=== PATIENT | male | born 1960 | race Caucasian/White ===

== ENCOUNTER 2020-07-13 12:42 | Emergency (ER) | payer OTHER ==
--- NOTE | 2020-07-13 13:45 | ED ---
Psych HPI - General Chief Complaint: Psychiatric Symptoms Stated Complaint: Medication problems Time Seen by Provider: 07/13/20 13:06 Source: patient Mode of arrival: ambulatory - Related Data Home Medications Medication Instructions Recorded Confirmed ALPRAZolam [Xanax] 0.5 mg PO BID 07/13/20 07/13/20 Venlafaxine HCl [Effexor XR] 37.5 mg PO HS 07/13/20 07/13/20 Venlafaxine HCl [Effexor XR] 75 mg PO DAILY 07/13/20 07/13/20 Previous Rx's Medication Instructions Recorded ALPRAZolam [Xanax] 1 mg PO Q8HR PRN 3 Days #9 tab 07/13/20 Allergies Allergy/AdvReac Type Severity Reaction Status Date / Time No Known Allergies Allergy Verified 07/13/20 16:05 Review of Systems ROS Statement: Those systems with pertinent positive or pertinent negative responses have been documented in the HPI. ROS Other: All systems not noted in ROS Statement are negative. Past Medical History Past Medical History: No Reported History History of Any Multi-Drug Resistant Organisms: None Reported Past Surgical History: Hernia Repair Additional Past Surgical History / Comment(s): abd hernia Past Psychological History: Anxiety, Depression, PTSD Smoking Status: Current every day smoker Past Alcohol Use History: Occasional Past Drug Use History: Marijuana General Exam Limitations: no limitations Course Vital Signs 07/13/20 12:55 Temperature 97.8 F Pulse Rate 94 Respiratory 20 Rate Blood Pressure 162/78 O2 Sat by Pulse 98 Oximetry Medical Decision Making - Lab Data Lab Results 07/13/20 Range/Units 13:41 Urine Opiates Screen Not Detected (NotDetected) Ur Oxycodone Screen Not Detected (NotDetected) Urine Methadone Screen Not Detected (NotDetected) Ur Propoxyphene Screen Not Detected (NotDetected) Ur Barbiturates Screen Not Detected (NotDetected) U Tricyclic Antidepress Not Detected (NotDetected) Ur Phencyclidine Scrn Not Detected (NotDetected) Ur Amphetamines Screen Not Detected (NotDetected) U Methamphetamines Scrn Not Detected (NotDetected) U Benzodiazepines Scrn Detected H (NotDetected) Urine Cocaine Screen Not Detected (NotDetected) U Marijuana (THC) Screen Detected H (NotDetected) Disposition Clinical Impression: Adjustment reaction of adult life Disposition: HOME SELF-CARE Condition: Stable Instructions (If sedation given, give patient instructions): Generalized Anxiety Disorder (ED) Additional Instructions: Please return to the Emergency Department if symptoms worsen or any other concerns. Prescriptions: ALPRAZolam [Xanax] 1 mg PO Q8HR PRN 3 Days #9 tab PRN Reason: Anxiety Is patient prescribed a controlled substance at d/c from ED?: Yes If prescribed controlled substance>3 days was MAPS reviewed?: Prescribed <3 Days Referrals: Bri Alvarez PAC [REFERRING] - 1-2 days Time of Disposition: 16:45
[2020-07-13 14:11] LABS: Amphetamine Screen,Urine Not Detected (NotDetected); Barbiturate Screen,Urine Not Detected (NotDetected); Benzodiazepines Screen,Urine Detected (NotDetected); Cocaine Screen,Urine Not Detected (NotDetected); Methadone Screen, Urine Not Detected (NotDetected); Opiate Screen,Urine Not Detected (NotDetected); Oxycodone Screen, Urine Not Detected (NotDetected); Phencyclidine Screen,Urine Not Detected (NotDetected); Tricyclic Antidepressant,Urine Not Detected (NotDetected); Urn Cannabinoid Scrn Detected (NotDetected)
[2020-07-13] MEDS ORDERED: ALPRAZolam 1 MG TAB PO STA (14:46)
[2020-07-13 17:31] VITALS: BP 134/80; PULSE 69; RESP 18; TEMP 98.2
== END 2020-07-13 17:29 | disposition home or self-care (01) ==
LOC: EC 12:42
DX: F43.20 Adjustment disorder, unspecified (principal); F32.9 Major depressive disorder, single episode, unspecified; F41.9 Anxiety disorder, unspecified; F17.200 Nicotine dependence, unspecified, uncomplicated; F12.90 Cannabis use, unspecified, uncomplicated; Z79.899 Other long term (current) drug therapy
CPT/HCPCS: 80306; 82075; 99284

== ENCOUNTER → 2020-07-20 | Outpatient (CLI) | payer OTHER | END | disposition home or self-care (01) | LOC: LABWHC1 13:15 | PROVIDERS: ATTEND Pediatrics | DX: Z20.822 Contact with and (suspected) exposure to COVID-19 (principal); R50.9 Fever, unspecified | CPT/HCPCS: U0003; C9803; U0005 ==

== ENCOUNTER 2020-08-01 16:59 | Emergency (ER) | payer OTHER ==
[2020-08-01 17:34] VITALS: BP 116/88; TEMP 98.9
--- NOTE | 2020-08-01 18:10 | ED ---
General Adult HPI - General Chief complaint: Anxiety Stated complaint: EPS eval Time Seen by Provider: 08/01/20 17:20 Source: patient Mode of arrival: ambulatory Limitations: no limitations - History of Present Illness Initial comments: Dictation was produced using [employer] dictation software. please excuse any grammatical, word or spelling errors. This patient was cared for during a federal and state declared state of emergency secondary to Covid 19 Chief Complaint: 60-year-old male presents with anxiety attack and suicidal thoughts History of Present Illness: Patient is a 60-year-old male who presents today with anxiety attack and suicidal thoughts. Patient states has been feeling like he wants to harm himself or the last day or so. He was seen here last week for the same thing. Patient thinks he needs to have his medications adjusted. He does not have a specific plan. He denies any medical complaints. No chest pain shortness of breath. The ROS documented in this emergency department record has been reviewed and confirmed by me. Those systems with pertinent positive or negative responses have been documented in the HPI. All other systems are other negative and/or noncontributory. PHYSICAL EXAM: General Impression: Alert and oriented x3, not in acute distress HEENT: Normocephalic atraumatic, extra-ocular movements intact, pupils equal and reactive to light bilaterally, mucous membranes moist. Cardiovascular: Heart regular rate and rhythm Chest: Able to complete full sentences, no retractions, no tachypnea Abdomen: abdomen soft, non-tender, non-distended, no organomegaly Musculoskeletal: Pulses present and equal in all extremities, no peripheral edema Motor: no focal deficits noted Neurological: CN II-XII grossly intact, no focal motor or sensory deficits noted Skin: Intact with no visualized rashes Psych: Mildly anxious ED course: 60-year-old male presents to the emergency Department for suicidal ideation and anxiety attack. vital signs upon arrival shows heart rate of 111, oxygen saturation 93% on room air cumbersome vital signs within acceptable limits. Chest x-ray is unremarkable. EKG is unremarkable. EKG interpretation: Ventricular rate 91, normal sinus rhythm, SC interval 1:30, QRS 104, QTC 423. No SC prolongation, no QTC prolongation, no ST or T-wave changes noted. No old EKG for comparison. Overall, this EKG is unremarkable Patient was medically cleared and evaluated by EPS who recommended discharge. patient given outpatient resources - Related Data Home Medications Medication Instructions Recorded Confirmed ALPRAZolam [Xanax] 0.5 mg PO BID 07/13/20 07/13/20 Venlafaxine HCl [Effexor XR] 37.5 mg PO HS 07/13/20 07/13/20 Venlafaxine HCl [Effexor XR] 75 mg PO DAILY 07/13/20 07/13/20 Previous Rx's Medication Instructions Recorded ALPRAZolam [Xanax] 1 mg PO Q8HR PRN 3 Days #9 tab 07/13/20 Allergies Allergy/AdvReac Type Severity Reaction Status Date / Time No Known Allergies Allergy Verified 07/13/20 16:05 Review of Systems ROS Statement: Those systems with pertinent positive or pertinent negative responses have been documented in the HPI. ROS Other: All systems not noted in ROS Statement are negative. Past Medical History Past Medical History: No Reported History History of Any Multi-Drug Resistant Organisms: None Reported Past Surgical History: Hernia Repair Additional Past Surgical History / Comment(s): abd hernia Past Psychological History: Anxiety, Depression, PTSD Smoking Status: Current every day smoker, Heavy tobacco smoker Past Alcohol Use History: Occasional Past Drug Use History: Marijuana General Exam Limitations: no limitations Course Vital Signs 08/01/20 17:31 Temperature 98.9 F Pulse Rate 111 H Respiratory 18 Rate Blood Pressure 116/88 O2 Sat by Pulse 93 L Oximetry Disposition Clinical Impression: Anxiety, Suicidal ideation Disposition: HOME SELF-CARE Condition: Good Instructions (If sedation given, give patient instructions): Generalized Anxiety Disorder (ED) Is patient prescribed a controlled substance at d/c from ED?: No Referrals: Rickie Williamson MD [Primary Care Provider] - 1-2 days Time of Disposition: 20:04
--- NOTE | 2020-08-01 19:39 | XR ---
EXAMINATION TYPE: XR chest 1V portable DATE OF EXAM: 08/01/2020 COMPARISON: NONE HISTORY: Hypoxemia TECHNIQUE: Single view FINDINGS: Heart and mediastinum are normal. Lungs are clear. Diaphragm is normal. Bony thorax appears normal. IMPRESSION: Normal chest
[2020-08-01 20:18] VITALS: PULSE 94; RESP 16
== END 2020-08-01 20:18 | disposition home or self-care (01) ==
LOC: EC 16:59
DX: R45.851 Suicidal ideations (principal); F41.9 Anxiety disorder, unspecified; F32.9 Major depressive disorder, single episode, unspecified; F17.200 Nicotine dependence, unspecified, uncomplicated
CPT/HCPCS: 71045; 82075; 93005; 99284

== ENCOUNTER 2024-06-15 17:44 | Inpatient (IN) | payer MEDICAID, OTHER ==
[2024-06-15] MEDS: IV FLUID CONTINUATION 1,000 ML IV ONE (18:00)
[2024-06-15] MEDS: LIDOCAINE 1% INJ 10MG/ML (20 ML MDV) SQ ONE (18:16)
[2024-06-15] MEDS: fentaNYL (PF) 50 MCG/1 ML VIAL IVP ONE (18:16)
[2024-06-15] MEDS: MIDAZOLAM 2 MG/2 ML VIAL IVP ONE (18:16)
[2024-06-15] MEDS: IOPAMIDOL-370 100ML BTL INJ ONE (18:25)
[2024-06-15] MEDS ORDERED: RX INFO: IV CONTRAST WAS GIVEN 1 EACH MISC MISCELLANE PRN (18:33)
--- NOTE | 2024-06-15 19:53 | CC ---
CARDIAC CATHETERIZATION REPORT INDICATIONS: Acute inferior wall myocardial infarction. HISTORY OF PRESENT ILLNESS: This is a 64-year-old gentleman, who presented to [facility] with sudden onset chest pain, where a diagnosis of acute inferior wall myocardial infarction was made, and the patient was transferred emergently to [facility] for primary angioplasty. 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 His chest pain had improved by the time we saw him. His EKG from the [facility] shows very minimal ST elevation in the inferior leads. I do not see a classic ST-segment elevation suggestive of an acute inferior SD. The patient was explained of the risks, benefits, and alternatives and understood and decided to proceed with the procedure. PROCEDURE NOTE: After obtaining informed consent, left heart catheterization and coronary angiogram were performed via the right radial artery using standard Vanessa catheters. The patient tolerated the procedure well without any obvious immediate complications. Total sedation time was 15 minutes. A TR band will be used for hemostasis. Right radial artery access was obtained using Seldinger technique. A 6-Portuguese sheath was placed. Catheters and wires were floated into the ascending aorta under fluoroscopic guidance. The patient received verapamil and heparin per protocol. FINDINGS: Hemodynamics: 1. Left ventricular end-diastolic pressure is 12 mm. There is no significant gradient across the aortic valve. 2. Left ventriculogram: Left ventriculogram is not performed. Angiographic Data: 1. Right coronary artery: Right coronary artery is a large dominant vessel and is free of significant disease. 2. Left main coronary artery is a normal-sized vessel and is free of stenosis, divides into left anterior descending coronary artery and circumflex coronary artery, LAD and its branches. Circumflex coronary artery and its branches are free of significant stenosis. CONCLUSION: Normal coronary arteries. PLAN: The patient's chest discomfort is probably noncardiac in origin, and he will undergo an echocardiogram tomorrow. No other cardiac workup. Rest of the evaluation and treatment per admitting doctor. MMODL / IJN: [id number] /
--- NOTE | 2024-06-15 20:02 | CONS ---
CONSULTATION CHIEF COMPLAINT: Chest pain. HISTORY OF PRESENT ILLNESS: Anil is a 64-year-old gentleman with no significant past medical history, who presented to the hospital, complaining of chest pain. He describes it as a precordial chest pressure, associated with diaphoresis and shortness of breath that came on suddenly. Went to the ER where an acute inferior wall myocardial infarction was diagnosed and he was transferred emergently for primary angioplasty to [facility]. His EKG shows sinus rhythm with ST-segment elevation in the inferior leads, suggestive of acute inferior wall myocardial infarction. 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 PAST MEDICAL HISTORY: Negative for hypertension, diabetes, and dyslipidemia. MEDICATIONS: None. ALLERGIES: None. FAMILY HISTORY: Negative for premature coronary artery disease. SOCIAL HISTORY: Significant for smoking, EtOH abuse, and marijuana. REVIEW OF SYSTEMS: 14 out of 14 review of systems has been performed. Pertinents are as documented. PHYSICAL EXAMINATION: GENERAL: Comfortable at rest. VITAL SIGNS: Stable. NECK: There is no jugular venous distention. Carotid upstroke is normal. There is no bruit. CHEST: Reveals good air entry bilaterally. HEART: Reveals first and second heart sounds. No gallop. No murmur. No rub. ABDOMEN: Soft and nontender. EXTREMITIES: Did not reveal any edema. Peripheral pulses are felt. LABORATORY DATA: Labs are pending. EKG is as described above. ASSESSMENT: Acute inferior wall myocardial infarction. PLAN: The patient will undergo emergent cardiac catheterization with a view to performing angioplasty. MMODL / IJN: [id number] /
[2024-06-15] MEDS: SODIUM CHLORIDE 0.9% 1,000 ML IV SCH (21:24)
[2024-06-15] MEDS ORDERED: LORazepam 1 MG TAB PO PRN (23:46)
[2024-06-16] MEDS: LORazepam 1 MG/0.5 ML VIAL IV PRN ×3 (00:03→23:33)
[2024-06-16] MEDS: chlordiazePOXIDE 25 MG CAP PO SCH (06:49)
--- NOTE | 2024-06-16 11:37 | CA ---
Transthoracic Echo Report Name: Anil Mackay Age: 64 Gender: M : 1960 Exam Date: 06/16/2024 08:19 Exam Location: [place] [facility] Ht (in): 65 Wt (lb): 130 Ordering Physician: Diego Carrington MD ([id number]) Attending/Referring Phys: Charissa MORENO Mica Miner Mariel Sung RDCS Procedure CPT: Indications: CO Cardiac Hx: Technical Quality: Fair, , Technically difficult study pt combative Contrast 1: Total Dose (mL): Contrast 2: Total Dose (mL): MEASUREMENTS (Male / Female) Normal Values 2D ECHO LV Diastolic Diameter PLAX 6.1 cm 4.2 - 5.9 / 3.9 - 5.3 cm LV Systolic Diameter PLAX 3.0 cm IVS Diastolic Thickness 1.1 cm 0.6 - 1.0 / 0.6 - 0.9 cm LVPW Diastolic Thickness 1.0 cm 0.6 - 1.0 / 0.6 - 0.9 cm LV Relative Wall Thickness 0.3 RV Internal Dim ED PLAX 1.6 cm LA Systolic Diameter LX 4.3 cm 3.0 - 4.0 / 2.7 - 3.8 cm LV Diastolic Volume MOD BP 69.8 cm??? 67 - 155 / 56 - 104 cm??? LV Systolic Volume MOD BP 27.7 cm??? 22 - 58 / 19 - 49 cm??? LV Ejection Fraction MOD BP 60.4 % >= 55 % LV Cardiac Index MOD BP 1922.5 cm???/min???m??? LV Diastolic Volume MOD 4C 81.2 cm??? LV Systolic Volume MOD 4C 31.7 cm??? LV Ejection Fraction MOD 4C 60.9 % LV Cardiac Index MOD 4C 2254.7 cm???/min???m??? LV Diastolic Length 4C 7.5 cm LV Systolic Length 4C 5.9 cm LV Diastolic Volume MOD 2C 61.6 cm??? LV Systolic Volume MOD 2C 22.1 cm??? LV Ejection Fraction MOD 2C 64.1 % LV Cardiac Index MOD 2C 1800.1 cm???/min???m??? LV Diastolic Length 2C 7.5 cm LV Systolic Length 2C 5.3 cm LA Volume 65.0 cm??? 18 - 58 / 22 - 52 cm??? LA Volume Index 39.5 cm???/m??? 16 - 28 cm???/m??? M-MODE Aortic Root Diameter MM 3.8 cm LA Systolic Diameter MM 3.2 cm LA Ao Ratio MM 0.8 AV Cusp Separation MM 2.2 cm DOPPLER AV Peak Velocity 126.9 cm/s AV Peak Gradient 6.4 mmHg AI Peak Velocity 336.7 cm/s AI Peak Gradient 45.3 mmHg AI Pressure Half Time 1260.3 ms MV Area PHT 3.1 cm??? Mitral E Point Velocity 76.1 cm/s Mitral A Point Velocity 77.2 cm/s Mitral E to A Ratio 1.0 MV Deceleration Time 247.1 ms FINDINGS Left Ventricle Left ventricular ejection fraction is estimated at 55-60 %. Mildly increased septal wall thickness. Mildly increased left ventricular diastolic diameter. Normal left ventricular systolic function with no obvious regional wall motion abnormalities. Right Ventricle Normal right ventricular size and function. Right Atrium Mild right atrial dilatation. Left Atrium Mildly increased left atrial diameter. Mildly increased left atrial volume. Mitral Valve Structurally normal mitral valve. Trace mitral regurgitation. No mitral stenosis. Aortic Valve Trileaflet aortic valve. No aortic valve stenosis or regurgitation. Tricuspid Valve Structurally normal tricuspid valve. No tricuspid stenosis. Trace tricuspid regurgitation. Pulmonic Valve Structurally normal pulmonic valve. No pulmonic stenosis. Trace pulmonic regurgitation. Pericardium No pericardial or pleural effusion. Aorta Mild aortic dilatation at the level of the sinuses of valsalva (root). CONCLUSIONS Normal LV size and systolic function. Mild mitral and tricuspid regurgitation. No significant pulmonary hypertension. No pericardial effusion Previewed by: Dr. Chinedu Eason MD (Electronically Signed) Final Date: 16 June 2024 11:36
--- NOTE | 2024-06-16 11:43 | P.PN ---
Subjective HISTORY OF PRESENT ILLNESS: This 64-year-old male who presented to the hospital for chief complaint of chest pain. Patient underwent cardiac catheterization yesterday which revealed normal coronary arteries. Patient examined at this point the bedside. No complaints of chest pain or shortness of breath. Vital signs are stable. Echo completed revealing ejection fraction 55 to 60%, mild MR, mild TR, no pericardial effusion. PHYSICAL EXAM: VITAL SIGNS: Reviewed. GENERAL: Well-developed in no acute distress. NECK: Supple. No JVD or thyromegaly LUNGS: Respirations even and unlabored. Lungs essentially clear to auscultation bilaterally. HEART: Regular rate and rhythm. S1 and S2 heard. EXTREMITIES: Normal range of motion. No clubbing or cyanosis. Peripheral pulses intact. No lower extremity edema ASSESSMENT: EKG with ST elevation inferiorly, status post cardiac catheterization revealing normal coronary arteries Nicotine dependence History of alcohol abuse Marijuana use PLAN: Patient is status post cardiac catheterization revealing normal coronary arteries There are no further inpatient recommendations from a cardiac standpoint We will sign off. Please reconsult if needed. Nurse practitioner note has been reviewed by physician. Signing provider agrees with the documented findings, assessment, and plan of care documented by ACCESSIONER as a scribe. Objective - Vital Signs Vital signs: Vital Signs Temp 98.4 F 06/16/24 08:40 Pulse 80 06/16/24 08:40 Resp 14 06/16/24 08:40 BP 122/60 06/16/24 08:40 Pulse Ox 92 L 06/16/24 08:40 FiO2 Intake & Output 06/15/24 06/16/24 06/16/24 18:59 06:59 18:59 Intake Total 100 240 180 Balance 100 240 180 Weight 84.1 kg Intake: IV 100 Oral 240 180 Other: Voiding Method Toilet # Voids 2
[2024-06-16] MEDS: MULTIVITAMINS, THERA 1 EACH TAB PO SCH (11:54)
[2024-06-16] MEDS: THIAMINE 100 MG TAB PO SCH (11:58)
[2024-06-16] MEDS: FOLIC ACID 1 MG TAB PO SCH (14:35)
[2024-06-16] MEDS: PANTOPRAZOLE 40 MG TABLET PO SCH (14:35)
--- NOTE | 2024-06-16 14:42 | XR ---
EXAMINATION TYPE: XR chest 1V portable DATE OF EXAM: 06/16/2024 2:26 PM COMPARISON: Chest radiographs from 08/01/2020 CLINICAL INDICATION: Male, 64 years old with history of chf; TECHNIQUE: XR chest 1V portable Frontal view of the chest. FINDINGS: Lungs/Pleura: Nodular-like opacity in the right upper suprahilar region measuring 8 mm. Not seen on There is no evidence of pleural effusion, focal consolidation, or pneumothorax. Pulmonary vascularity: Unremarkable. Heart/mediastinum: Cardiomediastinal silhouette is unremarkable. Musculoskeletal: No acute osseous pathology. IMPRESSION: 1. Right upper lobe nodular-like opacity further evaluation with CT recommended. 2. No evidence for congestive heart failure. [facility], , 06/16/2024 2:40 PM
[2024-06-16 14:54] LABS: Basophils % (A) 0 %; Eosinophils # (A) 0.1 k/uL (0-0.7); Eosinophils % (A) 1 %; HCT 49.4 % (39.0-53.0); Lymphocytes # (A) 2.1 k/uL (1.0-4.8); Lymphocytes % (A) 21 %; MCHC 32.4 g/dL (31.0-37.0); MCV 98.8 fL (80.0-100.0); Mean Platelet Volume 8.2; Monocytes # (A) 0.5 k/uL (0-1.0); Monocytes % (A) 5 %; Neutrophils # (A) 7.3 k/uL (1.3-7.7); Neutrophils % (A) 72 %; Platelet Count 205 k/uL (150-450); RDW 14.5 % (11.5-15.5); WBC 10.1 k/uL (3.8-10.6)
[2024-06-16 15:03] LABS: ALT 44 U/L (4-49); AST 129 U/L (17-59); African American GFR (CKD) >90 (>60 ml/min/1.73 sqM); Alkaline Phosphatase 60 U/L (38-126); Anion Gap 9 mmol/L; Blood Urea Nitrogen 19 mg/dL (9-20); Calcium 8.9 mg/dL (8.4-10.2); Carbon Dioxide 24 mmol/L (22-30); Chloride 105 mmol/L (98-107); Glucose 94 mg/dL (74-99); Non-African American GFR(CKD) 81 (>60 ml/min/1.73 sqM); Sodium 138 mmol/L (137-145); Total Bilirubin 0.9 mg/dL (0.2-1.3); Total Protein 7.1 g/dL (6.3-8.2)
[2024-06-16] MEDS: HALOPERIDOL LACTATE 5 MG/ML 1 ML VIAL IM PRN (16:54)
--- NOTE | 2024-06-16 18:13 | P.CNPUL ---
History of Present Illness Consult date: 06/16/24 Requesting physician: Emerson Bradley Reason for consult: other (Abnormal chest x-ray) Chief complaint: Chest pain History of present illness: This is a 64-year-old white male with history of multiple medical problems including alcohol abuse, nicotine dependence, patient presented on 06/15/2024 with intermittent episodes of chest pains, diaphoresis, shortness of breath, patient was seen by cardiology in consultation, his initial EKG showed sinus rhythm with ST segment elevation in the inferior leads suggestive of acute inferior wall OH. However patient underwent cardiac catheterization, and he was found to have normal coronaries. Chest x-ray today showed right upper nodularity like opacity in the right upper lobe, hence this consult was initially. In the meantime the patient is receiving [facility] protocol for history of alcoholism and symptoms of alcohol withdrawal. I saw the patient for his right upper lobe nodularity and I am recommending outpatient follow-up, patient will need a CT of the chest that could be done on outpatient basis. Patient is at least a [id number] smoker, no family history of lung cancer. And he never had any low-dose scans of the chest for lung cancer screening. Patient denies any cough, no wheezing, no hemoptysis. Review of Systems REVIEW OF SYSTEMS: CONSTITUTIONAL: Negative. EYES: Negative. ENT: Negative. CARDIAC: As noted in HPI PULMONARY: As noted in HPI GI: Negative. GENITOURINARY: Negative. MUSCULOSKELETAL: Negative. SKIN: Negative. NEUROPSYCH: Negative. ENDOCRINE: Negative. HEMATOLOGIC: Negative. Past Medical History Past Medical History: No Reported History History of Any Multi-Drug Resistant Organisms: None Reported Past Surgical History: Hernia Repair Additional Past Surgical History / Comment(s): abd hernia Past Psychological History: Anxiety, Depression, PTSD Smoking Status: Current every day smoker, Heavy tobacco smoker Past Alcohol Use History: Daily Past Drug Use History: Marijuana Medications and Allergies Home Medications Medication Instructions Recorded Confirmed Type ALPRAZolam [Xanax] 1 mg PO TID 06/15/24 06/15/24 History Venlafaxine HCl ER [Effexor Xr] 75 mg PO BID 06/15/24 06/15/24 History Allergies Allergy/AdvReac Type Severity Reaction Status Date / Time No Known Allergies Allergy Verified 06/15/24 20:06 Physical Exam Vitals: Vital Signs Temp Pulse Resp BP Pulse Ox 06/16/24 16:08 98 F 78 16 113/79 95 06/16/24 11:51 98 F 81 14 127/49 92 L 06/16/24 08:40 98.4 F 80 14 122/60 92 L 06/16/24 03:37 98.1 F 72 18 129/66 96 06/16/24 00:00 98.2 F 80 18 114/67 97 06/15/24 21:18 75 18 107/67 94 L 06/15/24 20:18 68 18 118/71 100 06/15/24 20:00 98.1 F 63 18 128/77 94 L 06/15/24 19:47 98.1 F 67 18 128/77 92 L Intake and Output 06/16/24 06/16/24 06/16/24 06:59 14:59 22:59 Intake Total 180 180 Balance 180 180 Intake: Oral 180 180 Other: Voiding Method Toilet Urinal # Voids 2 0 Weight 84.1 kg General Impression: Revealed 64-year-old white male in no distress HEENT: Normocephalic atraumatic, extra-ocular movements intact, pupils equal and reactive to light bilaterally, mucous membranes moist. Cardiovascular: Distant S1-S2, no S3 gallop, no murmur Chest: Clear bilaterally no rhonchi no wheezes Abdomen: abdomen soft, non-tender, non-distended, no organomegaly Musculoskeletal: No deformities no limitation range of motion Motor: No limitation in range of motion, no deformities Neurological: Alert oriented x 3 no gross focal deficit Skin: No rashes Psych: Anxious mood, normal affect, normal mental status examination. Results - Laboratory Findings CBC and BMP: 06/16/24 14:42 06/16/24 14:42 Abnormal lab findings: Abnormal Labs 06/16/24 14:42 AST 129 H - Diagnostic Findings Chest x-ray: image reviewed (As noted in HPI) Assessment and Plan Assessment: Impression: Chest pain with normal cardiac catheterization, initial EKG was suggestive of ST elevation in the inferior leads, this is being addressed by cardiology History of alcohol abuse, patient is on [facility] protocol Nicotine dependence Abnormal chest x-ray questioning nodular opacity in the right upper lobe, will need outpatient follow-up and outpatient CT of the chest. History of marijuana use Recommendation: Continue [facility] protocol Explained to the patient that he needs outpatient workup, could have a CT of the chest while inpatient if the patient is staying here longer but I believe it is best to have it done on outpatient basis. Consider discharge planning and follow-up on outpatient basis once felt to be ready for discharge by admitting physician. Again patient needs outpatient follow-up and an outpatient CT of the chest. Time with Patient: Greater than 30
--- NOTE | 2024-06-16 20:41 | HP ---
HISTORY AND PHYSICAL CHIEF COMPLAINT: Chest pain, vomiting, and as well as withdrawal. HISTORY OF PRESENT ILLNESS: This is a 64-year-old gentleman with a past medical history of multiple medical problems including significant alcohol intake, was transferred to [facility] with complaints of severe chest pain and some profuse sweating and the EKG showed changes in the inferior leads. However, cardiac catheterization showed normal coronary arteries. The patient is being closely monitored at this time. There is no history of any fever, rigors, or chills at this time. PAST MEDICAL HISTORY: Reviewed include alcohol, hernia repair. Rest of the history and rest of the chart are also reviewed. HOME MEDICATIONS: Reviewed include Effexor XR. Dose and rest of medications reviewed. ALLERGIES: None. FAMILY HISTORY: No history of heart disease or strokes in the family. SOCIAL HISTORY: Heavy alcohol intake, THC. REVIEW OF SYSTEMS: A 14-point review of systems is negative except as mentioned earlier. PHYSICAL EXAMINATION: VITAL SIGNS: Pulse 81, blood pressure 110/49, respirations 14. HEENT: Conjunctivae normal. NECK: No JVD. CARDIOVASCULAR: S1, S2. RESPIRATIONS: Breath sounds diminished at the bases. No rhonchi. No crackles. ABDOMEN: Soft. LEGS: No edema. NERVOUS SYSTEM: Diffuse tremors present. LABORATORY DATA: Not available. ASSESSMENT: 1. Chest pain, status post cardiac catheterization with normal coronary arteries. 2. Acute alcohol withdrawal and acute delirium tremens. 3. History of anxiety, depression, posttraumatic stress disorder. 4. History of nicotine dependence. RECOMMENDATIONS: This is a 64-year-old gentleman, who presented with multiple complex medical issues, we will monitor the patient closely. Continue the current medications. I would recommend basic labs and chest x-ray. Symptomatic treatment. [place] protocol. Add Haldol to the current regimen. Guarded prognosis because of multiple complex medical problems. See orders for further details. MMODL / IJN: [id number] /
[2024-06-17] MEDS: ACETAMINOPHEN TAB 325 MG TAB PO PRN (04:20)
[2024-06-17 08:04] VITALS: RESP 14
[2024-06-17 08:28] LABS: African American GFR (CKD) 90 (>60 ml/min/1.73 sqM); Anion Gap 5 mmol/L; Blood Urea Nitrogen 18 mg/dL (9-20); Calcium 8.7 mg/dL (8.4-10.2); Carbon Dioxide 29 mmol/L (22-30); Chloride 105 mmol/L (98-107); Glucose 83 mg/dL (74-99); Non-African American GFR(CKD) 78 (>60 ml/min/1.73 sqM); Potassium 4.1 mmol/L (3.5-5.1); Sodium 139 mmol/L (137-145)
[2024-06-17 08:42] LABS: Basophils % (A) 0 %; Eosinophils # (A) 0.1 k/uL (0-0.7); Eosinophils % (A) 2 %; HCT 51.6 % (39.0-53.0); HGB 16.4 gm/dL (13.0-17.5); Lymphocytes # (A) 2.2 k/uL (1.0-4.8); Lymphocytes % (A) 26 %; MCH 31.7 pg (25.0-35.0); MCHC 31.7 g/dL (31.0-37.0); MCV 99.8 fL (80.0-100.0); Macrocytosis Slight; Mean Platelet Volume 8.8; Monocytes # (A) 0.5 k/uL (0-1.0); Monocytes % (A) 6 %; Neutrophils # (A) 5.4 k/uL (1.3-7.7); Neutrophils % (A) 65 %; Platelet Count 190 k/uL (150-450); RBC 5.17 m/uL (4.30-5.90); RDW 14.7 % (11.5-15.5); WBC 8.3 k/uL (3.8-10.6)
[2024-06-17 11:35] VITALS: BP 91/60; PULSE 75; TEMP 98.2
--- NOTE | 2024-06-17 14:51 | P.PN ---
Subjective Progress Note Date: 06/17/24 Principal diagnosis: Atypical chest pain This is a 64-year-old white male with history of multiple medical problems including alcohol abuse, nicotine dependence, patient presented on 06/15/2024 with intermittent episodes of chest pains, diaphoresis, shortness of breath, patient was seen by cardiology in consultation, his initial EKG showed sinus rhythm with ST segment elevation in the inferior leads suggestive of acute inferior wall NH. However patient underwent cardiac catheterization, and he was found to have normal coronaries. Chest x-ray today showed right upper nodu larity like opacity in the right upper lobe, hence this consult was initially. In the meantime the patient is receiving [facility] protocol for history of alcoholism and symptoms of alcohol withdrawal. I saw the patient for his right upper lobe nodularity and I am recommending outpatient follow-up, patient will need a CT of the chest that could be done on outpatient basis. Patient is at least a 50-pa ck-year smoker, no family history of lung cancer. And he never had any low-dose scans of the chest for lung cancer screening. Patient denies any cough, no wheezing, no hemoptysis. Patient was seen today on 06/17/2024, patient is doing well, relatively asymptomatic, remains on the CIIL protocol as per his admitting physician. We saw this patient for abnormal chest x-ray, and I am recommending CT of the chest on outpatient basis. Pulmonary dobbins the patient doing well, and we will leave that up to the primary care physician as when he would like to discharge the patient but cleared from my perspective for discharge. And again must have CT of the chest on outpatient basis and follow-up on outpatient basis regarding his abnormal chest x-ray. Objective - Vital Signs Vital signs: Vital Signs Temp 98.2 F 06/17/24 11:32 Pulse 75 06/17/24 11:32 Resp 14 06/17/24 11:32 BP 91/60 06/17/24 11:32 Pulse Ox 94 L 06/17/24 11:32 FiO2 Intake & Output 06/16/24 06/17/24 06/17/24 18:59 06:59 18:59 Intake Total 540 10 Balance 540 10 Weight 84.2 kg Intake: IV 10 0.9 10 Oral 540 Other: Voiding Method Urinal Toilet Toilet # Voids 0 1 0 - Exam General Impression: Revealed 64-year-old white male in no distress, on room air HEENT: Normocephalic atraumatic, extra-ocular movements intact, pupils equal and reactive to light bilaterally, mucous membranes moist. Cardiovascular: Distant S1-S2, no S3 gallop, no murmur Chest: Clear bilaterally no rhonchi no wheezes Abdomen: abdomen soft, non-tender, non-distended, no organomegaly Musculoskeletal: No deformities no limitation range of motion Motor: No limitation in range of motion, no deformities Neurological: Alert oriented x 3 no gross focal deficit Skin: No rashes Psych: Anxious mood, normal affect, normal mental status examination. - Labs CBC & Chem 7: 06/17/24 06:35 06/17/24 06:35 Labs: Abnormal Lab Results - Last 24 Hours (Table) 06/16/24 Range/Units 14:42 AST 129 H (17-59) U/L Assessment and Plan Assessment: Impression: Chest pain with normal cardiac catheterization, initial EKG was suggestive of ST elevation in the inferior leads, this is being addressed by cardiology History of alcohol abuse, patient is on CIWA protocol Nicotine dependence Abnormal chest x-ray questioning nodular opacity in the right upper lobe, will need outpatient follow-up and outpatient CT of the chest. History of marijuana use Recommendation: Consider discharge planning Continue CIWA protocol Recommend outpatient follow-up and outpatient CT of the chest Will sign off and see the patient as needed Time with Patient: Less than 30
--- NOTE | 2024-06-19 14:51 | P.DS ---
Providers Date of admission: 06/15/24 18:01 Expected date of discharge: 06/17/24 Attending physician: Emerson Bradley Consults: 06/16/24 09:43 Consult Physician Urgent Consulting Provider: Valarie Peters Reason/Comments: etoh, high CIWA, need for ICU monitoring Do you want consulting provider notified?: Yes Primary care physician: Stated None Hospital Course: Final diagnosis Chest pain, status post cardiac catheterization with normal coronary arteries Acute alcohol withdrawal with acute delirium tremens History of anxiety/depression/PTSD History of continued ongoing nicotine dependence GI prophylaxis DVT prophylaxis Full code Discharge disposition Patient is being discharged in a stable condition with guarded prognosis to home. Patient will follow-up with Dr. Ricky Bradley to establish in the outpatient setting upon discharge. Patient is to continue with quick Librium taper and outpatient follow-up with cardiology as scheduled. Total time taken is greater than 35 minutes. Hospital course This is a 64-year-old male who was recently admitted with chest pain also acute alcohol intoxication with concerns of acute alcohol withdrawal and delirium tremens being closely monitored. Cardiology evaluated the patient as patient had elevated troponins recommending cardiac catheterization which patient was agreeable to revealing normal coronary arteries. Patient maintained on CIWA protocol along with Librium showing improvements and will continue a quick Librium taper. Patient instructed to quit alcohol and tobacco use and close outpatient follow-up to establish with a primary care provider as well as cardiology. Patient has been cleared by cardiology. Please refer to cardiology notes for further HPI. Currently no reports of chest pain, shortness of breath, or palpitations. Patient is afebrile. No reports of nausea or vomiting and patient is tolerating diet. Patient will be discharged home today. Guarded prognosis and high risk for readmissions given patient's continued alcohol use Physical exam: Gen: This is a 64-year-old male who is awake, alert and oriented x 3, well- developed, elderly appearing, thin built HEENT: Head is atraumatic, normocephalic. Pupils equal, round. Sclerae is anicteric. NECK: Supple. No JVD. No lymphadenopathy. No thyromegaly. LUNGS: Diminished breath sounds bilaterally otherwise clear to auscultation. No wheezes or rhonchi. No intercostal retractions. HEART: Regular rate and rhythm. No murmur. ABDOMEN: Soft. Thin bowel sounds are present. No masses. No tenderness. EXTREMITIES: No pedal edema. No calf tenderness. NEUROLOGICAL: Patient is awake, alert and oriented x3. Cranial nerves 2 through 12 are grossly intact. Please refer to medication reconciliation sheet for a list of medications. The impression and plan of care has been dictated by Chelsey Ceballos, Nurse Practitioner as directed. Dr. Kirk MD I have performed a history and examination and MDM of this patient, discussed the same with the dictator, and agree with the dictator's assessment and plan as written ,documented as a scribe. Based on total visit time, I have performed more than 50% of the visit. Patient Condition at Discharge: Fair Plan - Discharge Summary Discharge Rx Participant: Yes New Discharge Prescriptions: New Folic Acid 1 mg PO DAILY #30 tab Multivitamins, Thera [Multivitamin (formulary)] 1 each PO DAILY #30 tab Pantoprazole [Protonix] 40 mg PO AC-BRKFST #30 tab Acetaminophen Tab [Tylenol] 650 mg PO Q6HR PRN tab PRN Reason: Fever And/ Or Pain chlordiazePOXIDE HCl [Librium] 25 mg PO TID #9 cap Thiamine [Vitamin B-1] 100 mg PO DAILY #30 tab Continue ALPRAZolam [Xanax] 1 mg PO TID Venlafaxine HCl ER [Effexor XR] 75 mg PO BID Discharge Medication List ALPRAZolam [Xanax] 1 mg PO TID 06/15/24 [History] Venlafaxine HCl ER [Effexor XR] 75 mg PO BID 06/15/24 [History] Acetaminophen Tab [Tylenol] 650 mg PO Q6HR PRN tab 06/17/24 [Rx] Folic Acid 1 mg PO DAILY #30 tab 06/17/24 [Rx] Multivitamins, Thera [Multivitamin (formulary)] 1 each PO DAILY #30 tab 06/17/24 [Rx] Pantoprazole [Protonix] 40 mg PO AC-BRKFST #30 tab 06/17/24 [Rx] Thiamine [Vitamin B-1] 100 mg PO DAILY #30 tab 06/17/24 [Rx] chlordiazePOXIDE HCl [Librium] 25 mg PO TID #9 cap 06/17/24 [Rx] Follow up Appointment(s)/Referral(s): Brandee Yuen MD [STAFF PHYSICIAN] - 1 Week (Patient to make appointment ) Patient Instructions/Handouts: Chest Pain (GEN), How to Stop Smoking (DC) Discharge/Stand Alone Forms: [facility] Paulette Gutierres, Outpatient Counseling, In Substance Abuse Facilities Discharge Disposition: HOME SELF-CARE
== END 2024-06-17 15:02 | disposition home or self-care (01) | DRG 192 ==
LOC: 2SICU 18:01 → 3SCARD 18:27
PROVIDERS: ADMIT Hospitalist; ATTEND Hospitalist
PROC: B2111ZZ Fluoroscopy of Multiple Coronary Arteries using Low Osmolar Contrast (ICD-10-PCS; 2024-06-15)
PROC: 4A023N7 Measurement of Cardiac Sampling and Pressure, Left Heart, Percutaneous Approach (ICD-10-PCS; principal; 2024-06-15 18:01)
DX: R07.89 Other chest pain (principal); F10.231 Alcohol dependence with withdrawal delirium; F41.9 Anxiety disorder, unspecified; F32.A Depression, unspecified; F17.210 Nicotine dependence, cigarettes, uncomplicated; F43.10 Post-traumatic stress disorder, unspecified; Z79.899 Other long term (current) drug therapy
CPT/HCPCS: 71045; 80048; 80053; 85025; 93306

== ENCOUNTER 2024-06-20 03:13 | Emergency (ER) | payer OTHER ==
[2024-06-20 03:59] LABS: Basophils % (A) 0 %; Eosinophils # (A) 0.5 k/uL (0-0.7); Eosinophils % (A) 5 %; HCT 44.8 % (39.0-53.0); HGB 14.6 gm/dL (13.0-17.5); Lymphocytes % (A) 19 %; MCH 31.2 pg (25.0-35.0); MCHC 32.5 g/dL (31.0-37.0); MCV 96.2 fL (80.0-100.0); Mean Platelet Volume 8.3; Monocytes # (A) 0.5 k/uL (0-1.0); Monocytes % (A) 5 %; Neutrophils # (A) 7.2 k/uL (1.3-7.7); Neutrophils % (A) 69 %; Platelet Count 186 k/uL (150-450); RBC 4.66 m/uL (4.30-5.90); RDW 14.2 % (11.5-15.5); WBC 10.4 k/uL (3.8-10.6)
[2024-06-20 04:04] LABS: ALT 59 U/L (4-49); AST 52 U/L (17-59); African American GFR (CKD) >90 (>60 ml/min/1.73 sqM); Albumin 3.4 g/dL (3.5-5.0); Alkaline Phosphatase 56 U/L (38-126); Amylase 42 U/L (30-110); Anion Gap 5 mmol/L; Blood Urea Nitrogen 16 mg/dL (9-20); Calcium 8.4 mg/dL (8.4-10.2); Carbon Dioxide 27 mmol/L (22-30); Chloride 109 mmol/L (98-107); Glucose 99 mg/dL (74-99); Lipase 76 U/L (23-300); Non-African American GFR(CKD) >90 (>60 ml/min/1.73 sqM); Potassium 3.9 mmol/L (3.5-5.1); Sodium 141 mmol/L (137-145); Total Bilirubin 0.7 mg/dL (0.2-1.3); Total Protein 6.3 g/dL (6.3-8.2)
[2024-06-20] MEDS: MORPHINE SULFATE 4 MG/ML SYRINGE IV STA ×2 (04:28→06:46)
[2024-06-20 04:39] LABS: C Reactive Protein 4.5 mg/dL (<1.0)
--- NOTE | 2024-06-20 05:11 | ED ---
Abdominal Pain HPI - General Chief Complaint: Abdominal Pain Stated Complaint: Abdominal Pain Time Seen by Provider: 06/20/24 03:31 Source: patient, EMS Mode of arrival: EMS Limitations: no limitations - History of Present Illness MD Complaint: abdominal pain -: days(s) Location: LUQ, LLQ Radiation: none Migration to: no migration Severity: moderate Quality: aching Consistency: constant Improves With: nothing Worsens With: nothing Associated Symptoms: denies other symptoms - Related Data Home Medications Medication Instructions Recorded Confirmed ALPRAZolam [Xanax] 1 mg PO TID 06/15/24 06/15/24 Venlafaxine HCl ER [Effexor XR] 75 mg PO BID 06/15/24 06/15/24 Previous Rx's Medication Instructions Recorded Acetaminophen Tab [Tylenol] 650 mg PO Q6HR PRN tab 06/17/24 Folic Acid 1 mg PO DAILY #30 tab 06/17/24 Multivitamins, Thera [Multivitamin 1 each PO DAILY #30 tab 06/17/24 (formulary)] Pantoprazole [Protonix] 40 mg PO AC-BRKFST #30 tab 06/17/24 Thiamine [Vitamin B-1] 100 mg PO DAILY #30 tab 06/17/24 chlordiazePOXIDE HCl [Librium] 25 mg PO TID #9 cap 06/17/24 Dicyclomine [Bentyl] 20 mg PO QID #15 tablet 06/20/24 Allergies Allergy/AdvReac Type Severity Reaction Status Date / Time No Known Allergies Allergy Verified 06/20/24 03:29 Review of Systems ROS Statement: Those systems with pertinent positive or pertinent negative responses have been documented in the HPI. ROS Other: All systems not noted in ROS Statement are negative. Constitutional: Denies: fever, chills, weakness Respiratory: Denies: cough, dyspnea Cardiovascular: Denies: chest pain, palpitations Gastrointestinal: Reports: abdominal pain. Denies: nausea, vomiting, diarrhea, constipation, melena, hematochezia Genitourinary: Denies: dysuria, hematuria, testicular pain, testicular mass Musculoskeletal: Denies: back pain Skin: Denies: rash Neurological: Denies: headache, weakness, numbness Past Medical History Past Medical History: No Reported History History of Any Multi-Drug Resistant Organisms: None Reported Past Surgical History: Hernia Repair Additional Past Surgical History / Comment(s): abd hernia Past Psychological History: Anxiety, Depression, PTSD Smoking Status: Current every day smoker, Heavy tobacco smoker Past Alcohol Use History: Daily Past Drug Use History: Marijuana General Exam Limitations: no limitations General appearance: alert, in no apparent distress Head exam: Present: atraumatic, normocephalic Eye exam: Present: normal appearance. Absent: scleral icterus, conjunctival injection ENT exam: Present: normal oropharynx Neck exam: Present: normal inspection Respiratory exam: Present: normal lung sounds bilaterally. Absent: respiratory distress, wheezes, rales, rhonchi, stridor, accessory muscle use Cardiovascular Exam: Present: regular rate, normal rhythm, systolic murmur. Absent: diastolic murmur, rubs, gallop GI/Abdominal exam: Present: soft, tenderness. Absent: distended, guarding, rebound, rigid, mass, pulsatile mass, hernia Extremities exam: Present: normal inspection, normal capillary refill. Absent: pedal edema, calf tenderness Back exam: Present: normal inspection. Absent: CVA tenderness (R), CVA tenderness (L) Neurological exam: Present: alert Skin exam: Present: warm, dry, intact, normal color. Absent: rash Course Vital Signs 06/20/24 06/20/24 03:27 06:45 Temperature 98.2 F Pulse Rate 75 75 Respiratory 18 16 Rate Blood Pressure 115/71 99/68 O2 Sat by Pulse 94 L 92 L Oximetry Medical Decision Making - Lab Data Result diagrams: 06/20/24 03:18 06/20/24 03:18 Lab Results 06/20/24 06/20/24 06/20/24 Range/Units 03:18 03:18 03:18 WBC 10.4 (3.8-10.6) k/uL RBC 4.66 (4.30-5.90) m/uL Hgb 14.6 (13.0-17.5) gm/dL Hct 44.8 (39.0-53.0) % MCV 96.2 (80.0-100.0) fL MCH 31.2 (25.0-35.0) pg MCHC 32.5 (31.0-37.0) g/dL RDW 14.2 (11.5-15.5) % Plt Count 186 (150-450) k/uL MPV 8.3 Neutrophils % 69 % Lymphocytes % 19 % Monocytes % 5 % Eosinophils % 5 % Basophils % 0 % Neutrophils # 7.2 (1.3-7.7) k/uL Lymphocytes # 2.0 (1.0-4.8) k/uL Monocytes # 0.5 (0-1.0) k/uL Eosinophils # 0.5 (0-0.7) k/uL Basophils # 0.0 (0-0.2) k/uL Sodium 141 (137-145) mmol/L Potassium 3.9 (3.5-5.1) mmol/L Chloride 109 H (98-107) mmol/L Carbon Dioxide 27 (22-30) mmol/L Anion Gap 5 mmol/L BUN 16 (9-20) mg/dL Creatinine 0.83 (0.66-1.25) mg/dL Est GFR (CKD-EPI)AfAm >90 (>60 ml/min/1.73 sqM) Est GFR (CKD-EPI)NonAf >90 (>60 ml/min/1.73 sqM) Glucose 99 (74-99) mg/dL Plasma Lactic Acid Blaise 1.1 (0.7-2.0) mmol/L Calcium 8.4 (8.4-10.2) mg/dL Total Bilirubin 0.7 (0.2-1.3) mg/dL AST 52 (17-59) U/L ALT 59 H (4-49) U/L Alkaline Phosphatase 56 (38-126) U/L C-Reactive Protein 4.5 H (<1.0) mg/dL Total Protein 6.3 (6.3-8.2) g/dL Albumin 3.4 L (3.5-5.0) g/dL Amylase 42 (30-110) U/L Lipase 76 (23-300) U/L Urine Color Urine Appearance (Clear) Urine pH (5.0-8.0) Ur Specific [place] (1.001-1.035) Urine Protein (Negative) Urine Glucose (UA) (Negative) Urine Ketones (Negative) Urine Blood (Negative) Urine Nitrite (Negative) Urine Bilirubin (Negative) Urine Urobilinogen (<2.0) mg/dL Ur Leukocyte Esterase (Negative) Urine RBC (0-5) /hpf Urine WBC (0-5) /hpf Urine Mucus (None) /hpf 06/20/24 Range/Units 04:48 WBC (3.8-10.6) k/uL RBC (4.30-5.90) m/uL Hgb (13.0-17.5) gm/dL Hct (39.0-53.0) % MCV (80.0-100.0) fL MCH (25.0-35.0) pg MCHC (31.0-37.0) g/dL RDW (11.5-15.5) % Plt Count (150-450) k/uL MPV Neutrophils % % Lymphocytes % % Monocytes % % Eosinophils % % Basophils % % Neutrophils # (1.3-7.7) k/uL Lymphocytes # (1.0-4.8) k/uL Monocytes # (0-1.0) k/uL Eosinophils # (0-0.7) k/uL Basophils # (0-0.2) k/uL Sodium (137-145) mmol/L Potassium (3.5-5.1) mmol/L Chloride (98-107) mmol/L Carbon Dioxide (22-30) mmol/L Anion Gap mmol/L BUN (9-20) mg/dL Creatinine (0.66-1.25) mg/dL Est GFR (CKD-EPI)AfAm (>60 ml/min/1.73 sqM) Est GFR (CKD-EPI)NonAf (>60 ml/min/1.73 sqM) Glucose (74-99) mg/dL Plasma Lactic Acid Blaise (0.7-2.0) mmol/L Calcium (8.4-10.2) mg/dL Total Bilirubin (0.2-1.3) mg/dL AST (17-59) U/L ALT (4-49) U/L Alkaline Phosphatase (38-126) U/L C-Reactive Protein (<1.0) mg/dL Total Protein (6.3-8.2) g/dL Albumin (3.5-5.0) g/dL Amylase (30-110) U/L Lipase (23-300) U/L Urine Color Yellow Urine Appearance Clear (Clear) Urine pH 6.5 (5.0-8.0) Ur Specific [place] 1.019 (1.001-1.035) Urine Protein Negative (Negative) Urine Glucose (UA) Negative (Negative) Urine Ketones Negative (Negative) Urine Blood Moderate H (Negative) Urine Nitrite Negative (Negative) Urine Bilirubin Negative (Negative) Urine Urobilinogen 3.0 (<2.0) mg/dL Ur Leukocyte Esterase Negative (Negative) Urine RBC 21 H (0-5) /hpf Urine WBC 1 (0-5) /hpf Urine Mucus Rare H (None) /hpf Disposition Clinical Impression: Abdominal pain Disposition: HOME SELF-CARE Condition: Good Instructions (If sedation given, give patient instructions): Abdominal Pain (ED) Prescriptions: Dicyclomine [Bentyl] 20 mg PO QID #15 tablet Is patient prescribed a controlled substance at d/c from ED?: No Referrals: None,Stated [Primary Care Provider] - 1-2 days
[2024-06-20 05:25] LABS: Appearance,Urine Clear (Clear); Bilirubin,Urine Negative (Negative); Blood,Urine Moderate (Negative); Color,Urine Yellow; Glucose,Urine (UA) Negative (Negative); Ketones,Urine Negative (Negative); Leukocyte Esterase,Urine Negative (Negative); Mucus,Urine Rare /hpf; Nitrite,Urine Negative (Negative); PH, Urine 6.5 (5.0-8.0); Protein,Urine Negative (Negative); RBC,Urine 21 /hpf (0-5); Specific Gravity,Urine 1.019 (1.001-1.035); WBC,Urine 1 /hpf (0-5)
--- NOTE | 2024-06-20 05:54 | CT ---
EXAM: CT Abdomen and Pelvis Without Intravenous Contrast CLINICAL HISTORY: ITS.REASON CT Reason: L side abdominal pain TECHNIQUE: Axial computed tomography images of the abdomen and pelvis without intravenous contrast. CTDI is 8.7 mGy and DLP is 516.1 mGy-cm. This CT exam was performed using one or more of the following dose reduction techniques: automated exposure control, adjustment of the mA and/or kV according to patient size, and/or use of iterative reconstruction technique. COMPARISON: No relevant prior studies available. FINDINGS: Limitations: Limited evaluation in the absence of contrast. Lung bases: Mild dependent atelectatic changes. ABDOMEN: Liver: Unremarkable. Gallbladder and bile ducts: Cholelithiasis. No gross findings to suggest cholecystitis. No ductal dilation. Pancreas: Unremarkable. No ductal dilation. Spleen: Unremarkable. No splenomegaly. Adrenals: Mild right adrenal gland thickening. 2.3 cm left adrenal lipid rich adenoma. This is not require further follow-up. Kidneys and ureters: No evidence of radiopaque renal calculi or signs of collecting system dilatation. Stomach and bowel: Unremarkable. No obstruction. No mucosal thickening. PELVIS: Appendix: No findings to suggest acute appendicitis. Bladder: Unremarkable. No stones. Reproductive: Prostatic calcifications. Prostatomegaly. ABDOMEN and PELVIS: Intraperitoneal space: Unremarkable. No free air. No significant fluid collection. Bones/joints: Degenerative changes in the spine. No acute fracture. No dislocation. Soft tissues: See above. Vasculature: Infrarenal abdominal aortic aneurysm measuring 4.1 x 3.8 cm in luminal cross-sectional diameter. Atherosclerotic disease. Lymph nodes: Unremarkable. No enlarged lymph nodes. IMPRESSION: 1. Limited evaluation in the absence of contrast. 2. No evidence of radiopaque renal calculi or signs of collecting system dilatation. 3. Infrarenal abdominal aortic aneurysm measuring 4.1 x 3.8 cm in luminal cross-sectional diameter. 4. No other acute findings. 5. Incidental findings as described.
[2024-06-20 07:30] VITALS: BP 135/81; PULSE 78; RESP 18; TEMP 98
== END 2024-06-20 07:28 | disposition home or self-care (01) ==
LOC: EC 03:13
DX: R10.32 Left lower quadrant pain (principal); R10.12 Left upper quadrant pain; F17.200 Nicotine dependence, unspecified, uncomplicated
CPT/HCPCS: 36415; 80053; 82150; 83605; 83690; 85025; 86140; 81001; 74176; 99285; 96374; 96376; J2270

== ENCOUNTER → 2024-10-02 | Outpatient (CLI) | payer OTHER ==
--- NOTE | 2024-10-04 17:56 | PE ---
EXAMINATION TYPE: PET CT fusion skull to thigh DATE OF EXAM: 10/02/2024 CLINICAL INDICATION:Male, 64 years old with history of R91.8 OTHER NONSPECIFIC ABNORMAL FINDING OF EVER NG F; TECHNIQUE: Following the intravenous administration of 10.15 mCi of F-18 FDG, whole body images are performed from the skull base to the midthigh. Images are reviewed on the computer in the coronal, axial, and sagittal planes. Reconstructed rotating images are created on independent workstation and reviewed on the computer. A non-contrast CT is performed in conjunction with the PET scan. Glucose level 98 mg/dL CT DLP: 708.5 mGycm, Automated exposure control for dose reduction was used. COMPARISON: CT 09/01/2024, 06/20/2024, PET/CT None, MRI: None FINDINGS: Mediastinal SUV mean is 2.2. Hepatic parenchyma SUV mean is 2.6. SKULL BASE AND NECK: Enlarged FDG avid 2.1 cm well-circumscribed ovoid lesion along the posterior inferior aspect of the l eft parotid gland. Demonstrates a maximum SUV of 11.3. CHEST, MEDIASTINUM, AND HILAR REGION: Right upper lobe 2.9 x 2.2 cm FDG avid spiculated nodule with a max SUV of 15.5. There is some surrou nding linear scarring. ABDOMEN AND PELVIS: No suspicious radiotracer activity. MUSCULOSKELETAL STRUCTURES: No suspicious radiotracer activity. OTHER CT: Left palatine tonsilloliths. Mild to moderate centrilobular and paraseptal emphysematous ch anges. Bilateral lower lobe linear atelectasis. Mid to distal fusiform abdominal aortic aneurysm faina uring 3.9 x 3.9 cm. Left adrenal gland non-FDG avid 2.6 cm benign lipid rich adenoma with Hounsfield unit of -1. Several small gas filled gallstones identified. Chronic anterior wedge compression deform ity of the T9 vertebral body. No suspicious FDG activity. IMPRESSION: 1. Right upper lobe FDG avid spiculated nodule most consistent with primary lung malignancy. 2. FDG avid lesion along the posterior inferior aspect of the left parotid gland. May represent a met astatic lymph node however there are no other sites of FDG avid metastasis. Could also represent a pa rotid salivary gland tumor. Recommend ultrasound evaluation with consideration for tissue sampling. 3. Abdominal aortic aneurysm measuring up to 3.9 cm. Continued surveillance is recommended. [facility], , 10/04/2024 5:54 PM
== END | disposition home or self-care (01) ==
LOC: RADPETMAIN 14:06
PROVIDERS: ATTEND Pediatrics
DX: R91.8 Other nonspecific abnormal finding of lung field (principal); R59.1 Generalized enlarged lymph nodes; S22.000A Wedge compression fracture of unspecified thoracic vertebra, initial encounter for closed fracture; I71.40 Abdominal aortic aneurysm, without rupture, unspecified; X58.XXXA Exposure to other specified factors, initial encounter
CPT/HCPCS: 78815; A9552

== ENCOUNTER 2024-10-20 08:14 | Day surgery (SDC) | payer OTHER ==
[2024-10-20 10:19] VITALS: BP 112/74; PULSE 80; RESP 18; TEMP 98
--- NOTE | 2024-10-20 10:31 | US ---
EXAMINATION TYPE: US biopsy parotid gland DATE OF EXAM: 10/20/2024 9:48 AM COMPARISON: 10/02/2024 CLINICAL INDICATION:Male, 64 years old with history of K11.8 OTHER DISEASES OF SALIVARY GLANDS; , ATTENDING: Dr. Valeriy Haynes PROCEDURE: Informed consent was obtained. The risks and benefits of the procedure were discussed with the patien t. The site was marked. Timeout procedure was performed Ultrasound imaging demonstrates hypoechoic mass in the left inferior parotid gland. The patient was prepped, draped in the usual sterile fashion, and locally anesthetized with 1% lidoca ine. 4 x 18-gauge core needle biopsies were obtained.. Samples were sent to the pathology department for further analysis. Patient tolerated the procedure without incident and was sent home in stable condition. IMPRESSION: Successful ultrasound guided core biopsy [facility], , 10/20/2024 10:28 AM
== END 2024-10-20 09:50 | disposition home or self-care (01) ==
LOC: RADPROMAIN 08:14
PROVIDERS: ATTEND Internal Medicine
DX: D11.0 Benign neoplasm of parotid gland (principal); K11.8 Other diseases of salivary glands
CPT/HCPCS: 42400; 76942; 88305